=== PATIENT | female | born 1995 | race Caucasian/White ===

== ENCOUNTER 2018-10-31 04:34 | Outpatient (CLI) | payer BC, OTHER ==
[~2018-10-31] VITALS: Ht 177.8 cm; Wt 90.9 kg
[~2018-10-31 04:34] MED LIST: ACET325T14 PO; CA C1TAB60 PO; PREN1TAB79 PO
== END 2018-10-31 06:20 | disposition home or self-care (01) ==
LOC: LDOP 04:34
PROVIDERS: ATTEND Obstetrics & Gynecology
DX: O26.893 Other specified pregnancy related conditions, third trimester (principal); Z3A.39 39 weeks gestation of pregnancy
CPT/HCPCS: 59025; 99211; G0463

== ENCOUNTER 2018-11-06 01:36 | Inpatient (IN) | payer BC, OTHER ==
[~2018-11-06] VITALS: Ht 177.8 cm; Wt 91.8 kg
[2018-11-06] MEDS ORDERED: LIDOCAINE 1%, 20ML ONE (03:09)
[2018-11-06] MEDS ORDERED: OXYTOCIN 30U/ 0.9% NaCL 500ML 500 ML ONE ×2 (03:09→12:44)
[2018-11-06] MEDS ORDERED: NEWBORN KIT ONE (03:09)
[2018-11-06] MEDS ORDERED: MISOPROSTOL 200 MCG TABLET ONE (03:10)
[2018-11-06] MEDS ORDERED: OXYTOCIN 30U/ 0.9% NaCL 500ML 500 ML IV ONE (03:28)
[2018-11-06] MEDS ORDERED: FENTANYL PF 100 MCG/2ML IVPush PRN (03:30)
[2018-11-06] MEDS ORDERED: ONDANSETRON 2MG/ML, 2ML IVPush PRN (03:30)
[2018-11-06] MEDS ORDERED: TERBUTALINE 1 MG/ML, 1ML IVPush PRN (03:30)
[2018-11-06] MEDS ORDERED: FENTANYL PF 100 MCG/2ML IV PRN (03:30)
[2018-11-06] MEDS ORDERED: SODIUM CITRATE/CITRIC ACID 30 ML UDC PO PRN (03:30)
[2018-11-06] MEDS ORDERED: METOCLOPRAMIDE 5 MG/ML, 2ML IVPush PRN (03:30)
[2018-11-06] MEDS ORDERED: CALCIUM CARBONATE 500 MG TAB.CHEW PO PRN (03:30)
[2018-11-06] MEDS ORDERED: FENTANYL PF 100 MCG/2ML ONE (03:47)
[2018-11-06] MEDS ORDERED: ONDANSETRON 2MG/ML, 2ML ONE (03:47)
[2018-11-06 03:55] LABS: BASOPHILS # (AUTO) 0.04 x10^3/uL (0-0.1); BASOPHILS % (AUTO) 0 % (0-1); EOSINOPHILS # (AUTO) 0.04 x10^3/uL (0-0.4); EOSINOPHILS % (AUTO) 0 % (1-7); LYMPHOCYTES % (AUTO) 17 % (22-44); MD NO; MEAN CORPUSCULAR HEMOGLOBIN 32.5 pg (27.0-34.8); MEAN CORPUSCULAR VOLUME 95.6 fL (80-100); MEAN PLATELET VOLUME 9.1 fL (7.4-10.4); MONOCYTES % (AUTO) 7 % (2-9); NEUTROPHILS # (AUTO) 8.18 x10^3/uL (1.8-6.8); NEUTROPHILS % (AUTO) 76 % (42-75); PLATELET COUNT 218 x10^3/uL (130-400); RED BLOOD COUNT 3.72 x10^6/uL (3.82-5.3); RED CELL DISTRIBUTION WIDTH 14.1 % (9.6-15.2)
[2018-11-06] MEDS ORDERED: FENTANYL/BUPIV./NS/PF 250 ML EPIDCONT ONE (04:20)
[2018-11-06] MEDS: LACTATED RINGERS 1,000 ML IV SCH ×4 (04:27→12:46)
[2018-11-06] MEDS ORDERED: NALOXONE 0.4 MG/ML, 1ML IVPush PRN (04:30)
[2018-11-06] MEDS ORDERED: EPHEDRINE 50 MG/ML, 1ML IVPush PRN (04:30)
[2018-11-06] MEDS ORDERED: FENTANYL/BUPIV./NS/PF 250 ML EPIDCONT SCH (04:30)
[2018-11-06] MEDS ORDERED: LACTATED RINGERS 1,000 ML IVBOLUS PRN (04:30)
[2018-11-06] MEDS ORDERED: BUPIVACAINE 0.25% ONE (04:33)
[2018-11-06] MEDS ORDERED: OXYTOCIN 30U/ 0.9% NaCL 500ML 500 ML IV PRN (06:26)
[2018-11-06] MEDS: D5%-LACTATED RINGERS 1,000 ML IV SCH ×2 (08:01→11:28)
[2018-11-06] MEDS ORDERED: IBUPROFEN 600 MG TABLET ONE (12:20)
[2018-11-06] MEDS ORDERED: OXYcodone/APAP 5/325MG TABLET ONE (12:21)
[2018-11-06] MEDS: OXYcodone/APAP 5/325MG TABLET PO PRN ×2 (12:24→21:46)
[2018-11-06] MEDS: IBUPROFEN 600 MG TABLET PO PRN ×2 (12:24→19:26)
[2018-11-06] MEDS ORDERED: ACETAMINOPHEN 325 MG TABLET PO PRN (12:30)
[2018-11-06] MEDS ORDERED: MISOPROSTOL 200 MCG TABLET PR PRN (12:30)
[2018-11-06] MEDS ORDERED: ONDANSETRON 2MG/ML, 2ML IV PRN (12:30)
[2018-11-06] MEDS ORDERED: METHYLERGONOVINE 0.2 MG/ML IM PRN (12:30)
[2018-11-06] MEDS ORDERED: OXYcodone/APAP 5/325MG TABLET PO PRN (12:30)
[2018-11-06] MEDS: OXYTOCIN 30U/ 0.9% NaCL 500ML 500 ML IV SCH ×2 (12:47→22:14)
[2018-11-06 14:20] VITALS: BP 111/69
[2018-11-06] MEDS: DOCUSATE 100 MG CAPSULE PO PRN (19:26)
[2018-11-06 19:39] LABS: MEAN CORPUSCULAR HEMOGLOBIN 32.7 pg (27.0-34.8); MEAN CORPUSCULAR HGB CONC 34.1 g/dL (32.4-35.8); MEAN CORPUSCULAR VOLUME 95.9 fL (80-100); MEAN PLATELET VOLUME 9.3 fL (7.4-10.4); PLATELET COUNT 193 x10^3/uL (130-400); RED CELL DISTRIBUTION WIDTH 14.3 % (9.6-15.2)
[2018-11-06 19:44] VITALS: BP 111/74
[2018-11-06 19:58] LABS: BASOPHILS # (AUTO) 0.07 x10^3/uL (0-0.1); BASOPHILS % (AUTO) 1 % (0-1); EOSINOPHILS # (AUTO) 0.03 x10^3/uL (0-0.4); EOSINOPHILS % (AUTO) 0 % (1-7); LYMPHOCYTES # (AUTO) 1.95 x10^3/uL (1-3.4); LYMPHOCYTES % (AUTO) 14 % (22-44); MD SCAN; MONOCYTES # (AUTO) 0.62 x10^3/uL (0.2-0.8); MONOCYTES % (AUTO) 5 % (2-9); NEUTROPHILS % (AUTO) 81 % (42-75)
[2018-11-07] VITALS: BP 109/63
[2018-11-07] MEDS: IBUPROFEN 600 MG TABLET PO PRN ×3 (02:17→18:05)
[2018-11-07] MEDS: OXYcodone/APAP 5/325MG TABLET PO PRN ×5 (02:17→22:16)
[2018-11-07 04:14] VITALS: BP 103/67
[2018-11-07] MEDS: PRENATAL VIT/IRON/FA 1 EACH TABLET PO SCH (07:23)
[2018-11-07] MEDS: DOCUSATE 100 MG CAPSULE PO PRN ×2 (07:23→22:16)
[2018-11-07 07:35] VITALS: BP 120/77
[2018-11-07] MEDS: OXYTOCIN 30U/ 0.9% NaCL 500ML 500 ML IV SCH ×2 (08:14→18:14)
[2018-11-07] MEDS ORDERED: IBUP-1222 PO (10:00)
[2018-11-07 20:00] VITALS: BP 124/80
[2018-11-08] MEDS: IBUPROFEN 600 MG TABLET PO PRN ×2 (00:08→07:40)
[2018-11-08] MEDS: OXYTOCIN 30U/ 0.9% NaCL 500ML 500 ML IV SCH ×2 (04:14→14:14)
[2018-11-08] MEDS: OXYcodone/APAP 5/325MG TABLET PO PRN ×3 (04:20→12:53)
[2018-11-08 07:40] VITALS: BP 119/83
[2018-11-08] MEDS: DOCUSATE 100 MG CAPSULE PO PRN (07:40)
[2018-11-08] MEDS: PRENATAL VIT/IRON/FA 1 EACH TABLET PO SCH (07:40)
== END 2018-11-08 19:15 | disposition home or self-care (01) | DRG 807 ==
LOC: LDOP 01:36 → LDIP 03:10 → 2NW 14:12
PROVIDERS: ADMIT Obstetrics & Gynecology; ATTEND Obstetrics & Gynecology
PROC: 10D07Z6 Extraction of Products of Conception, Vacuum, Via Natural or Artificial Opening (ICD-10-PCS; principal; 2018-11-06)
PROC: 0KQM0ZZ Repair Perineum Muscle, Open Approach (ICD-10-PCS; 2018-11-06)
PROC: 10H07YZ Insertion of Other Device into Products of Conception, Via Natural or Artificial Opening (ICD-10-PCS; 2018-11-06)
PROC: 3E0R3BZ Introduction of Anesthetic Agent into Spinal Canal, Percutaneous Approach (ICD-10-PCS; 2018-11-06)
PROC: 00HU33Z Insertion of Infusion Device into Spinal Canal, Percutaneous Approach (ICD-10-PCS; 2018-11-06)
DX: O48.0 Post-term pregnancy (principal); Z37.0 Single live birth; O64.0XX0 Obstructed labor due to incomplete rotation of fetal head, not applicable or unspecified; O69.81X0 Labor and delivery complicated by cord around neck, without compression, not applicable or unspecified; Z3A.40 40 weeks gestation of pregnancy; O76 Abnormality in fetal heart rate and rhythm complicating labor and delivery; O70.1 Second degree perineal laceration during delivery
CPT/HCPCS: 36415; J7121; 82803; 85025; 86850; 86900; G0378; J2405; J3010; J3490; J2590; J7120